=== PATIENT | male | born 1950 | race Caucasian/White ===

== ENCOUNTER 2021-10-27 12:59 | Emergency (ER) | payer MEDICARE ==
[~2021-10-27] VITALS: Ht 175.3 cm; Wt 118.0 kg
[2021-10-27 13:57] LABS: BASOPHILS % (AUTO) 0.2 % (0-1); EOSINOPHILS % (AUTO) 0.2 % (0-6); HEMATOCRIT 23.6 % (42.0-52.0); HEMOGLOBIN 7.4 g/dl (14.0-17.9); LYMPHOCYTES # (AUTO) 0.3 X10'3 (1.1-4.8); LYMPHOCYTES % (AUTO) 11.2 % (21-51); MEAN CORPUSCULAR HEMOGLOBIN 25.8 PG (27.0-31.0); MEAN CORPUSCULAR HGB CONC 31.3 g/dL (33.0-36.5); MEAN CORPUSCULAR VOLUME 82.4 FL (78-98); MEAN PLATELET VOLUME 7.9 FL (7.4-10.4); MONOCYTES # (AUTO) 0.1 X10'3 (0-0.9); NEUTROPHILS % (AUTO) 84.4 % (42-75); PLATELET COUNT 60 X10'3 (140-440); RED BLOOD COUNT 2.87 X10'6 (4.70-6.10); RED CELL DISTRIBUTION WIDTH 19.6 % (11.5-14.5); WHITE BLOOD COUNT 2.4 X10'3 (4.5-11.0)
[2021-10-27 14:26] LABS: ANISOCYTOSIS 2+; PLATELET ESTIMATE DECREASED; TOTAL CELLS COUNTED 100
[2021-10-27 14:28] LABS: LARGE PLATELETS FEW
[2021-10-27 16:13] LABS: ALANINE AMINOTRANSFERASE 58 U/L (12-78); ALBUMIN 2.5 G/DL (3.4-5.0); ALBUMIN/GLOBULIN RATIO 0.6 (1.1-1.5); ALKALINE PHOSPHATASE 137 IU/L (46-116); ANION GAP 3 (8-16); ASPARTATE AMINO TRANSFERASE 51 U/L (10-37); BILIRUBIN,TOTAL 1.1 MG/DL (0.1-1.0); BLOOD UREA NITROGEN 21 MG/DL (7-18); BUN/CREATININE RATIO 18.3 (5.4-32.0); CALCIUM 8.1 MG/DL (8.5-10.1); CHLORIDE 109 MMOL/L (99-107); CREATININE 1.15 MG/DL (0.60-1.10); GLUCOSE 114 MG/DL (70-104); POTASSIUM 4.1 MMOL/L (3.5-5.1); SODIUM 141 MMOL/L (135-145); TOTAL CARBON DIOXIDE 28.8 MMOL/L (24-32); TOTAL PROTEIN 6.7 G/DL (6.4-8.2); eGFR 63 ML/MIN
[2021-10-27 18:31] VITALS: BP 137/77
[2021-10-27 18:58] VITALS: BP 138/73
[2021-10-27 19:41] VITALS: BP 140/75
[2021-10-27 20:32] VITALS: BP 138/85
== END 2021-10-27 21:29 | disposition home or self-care (01) ==
LOC: ER 13:00
DX: D64.9 Anemia, unspecified (principal); R19.7 Diarrhea, unspecified; D61.818 Other pancytopenia; R14.0 Abdominal distension (gaseous); R60.0 Localized edema; R07.89 Other chest pain; Z86.16 Personal history of COVID-19
CPT/HCPCS: 36415; 36430; 80053; 85007; 85025; 86885; 86900; 86901; 86920; 99285; P9016